=== PATIENT | male | born 1990 | race Caucasian/White ===

== ENCOUNTER 2019-03-22 08:39 | Emergency (ER) | payer SELFPAY ==
[2019-03-22] MEDS: ONDANSETRON (ODT) 4 MG TAB ODT (09:19)
[2019-03-22] MEDS: LIDOCAINE/MYLANTA 40 ML BTL PO (09:19)
[2019-03-22 09:39] LABS: ADD MAN DIFF? NO
[2019-03-22 09:43] LABS: BASOPHILS % 0.4 % (0.0-2.0); EOSINOPHILS # 0.1 10^3/ul (0.0-0.5); EOSINOPHILS % 0.7 % (0.0-7.0); HEMATOCRIT 45.6 % (42.0-52.0); LYMPHOCYTES # 2.3 10^3/ul (0.8-2.9); LYMPHOCYTES % 32.1 % (15.0-51.0); MEAN CORPUSCULAR HEMOGLOBIN 30.1 pg (29.0-33.0); MEAN CORPUSCULAR HGB CONC 32.9 g/dl (32.0-37.0); MEAN CORPUSCULAR VOLUME 91.4 fl (82.0-101.0); MEAN PLATELET VOLUME 10.8 fl (7.4-10.4); MONOCYTE # 0.5 10^3/ul (0.3-0.9); MONOCYTES % 7.5 % (0.0-11.0); NEUTROPHIL # 4.2 10^3/ul (1.6-7.5); NEUTROPHILS % 59.2 % (39.0-77.0); PLATELET COUNT 250 10^3/UL (140-415); RED BLOOD COUNT 4.99 10^6/ul (4.70-6.10); RED CELL DISTRIBUTION WIDTH 11.9 % (11.5-14.5)
[2019-03-22 09:43] LABS: WHITE BLOOD COUNT 7.1 10^3/ul (4.8-10.8)
[2019-03-22 09:46] LABS: ADD UMIC NO; UR ASCORBIC ACID NEGATIVE (NEGATIVE); UR BILIRUBIN (Dip) NEGATIVE (NEGATIVE); UR BLOOD (Dip) NEGATIVE (NEGATIVE); UR CLARITY CLEAR (CLEAR); UR COLOR YELLOW (YELLOW); UR GLUCOSE (Dip) NEGATIVE (NEGATIVE); UR KETONES (Dip) NEGATIVE (NEGATIVE); UR LEUKOCYTE ESTERASE (Dip) NEGATIVE Leu/ul (NEGATIVE); UR NITRITE (Dip) NEGATIVE (NEGATIVE); UR SPECIFIC GRAVITY (Dip) 1.023 (1.003-1.030); UR TOTAL PROTEIN (Dip) NEGATIVE (NEGATIVE); UR UROBILINOGEN (Dip) NEGATIVE (NEGATIVE)
[2019-03-22 10:04] LABS: ALANINE AMINOTRANSFERASE 97 IU/L (13-69); ALBUMIN 4.6 g/dl (3.3-4.9); ALBUMIN/GLOBULIN RATIO 1.31; ALKALINE PHOSPHATASE 92 IU/L (42-121); ANION GAP 8 (5-13); ASPARTATE AMINO TRANSFERASE 42 IU/L (15-46); BILIRUBIN,INDIRECT 0.5 mg/dl (0-1.1); BILIRUBIN,TOTAL 0.5 mg/dl (0.2-1.3); BLOOD UREA NITROGEN 8 mg/dl (7-20); CARBON DIOXIDE 27 mmol/L (21-31); CHLORIDE 105 mmol/L (97-110); CREATININE 1.07 mg/dl (0.61-1.24); Estimated GFR > 60 mL/min (>60); GLUCOSE 95 mg/dl (70-220); LIPASE 55 U/L (23-300); POTASSIUM 4.5 mmol/L (3.5-5.1); SODIUM 140 mmol/L (135-144); TOTAL PROTEIN 8.1 g/dl (6.1-8.1)
== END 2019-03-22 10:15 | disposition home or self-care (01) ==
LOC: FTE 10:15
DX: R10.13 Epigastric pain (principal); R11.2 Nausea with vomiting, unspecified
CPT/HCPCS: 36415; 80053; 81003; 83690; 85025; 99283

== ENCOUNTER 2019-03-24 21:01 | Emergency (ER) | payer SELFPAY ==
[2019-03-24] MEDS: PANTOPRAZOLE (EC) 40 MG TAB PO (21:36)
[2019-03-24] MEDS: LIDOCAINE/MYLANTA 40 ML BTL PO (21:36)
== END 2019-03-24 23:31 | disposition home or self-care (01) ==
LOC: FTE 21:01
DX: R10.13 Epigastric pain (principal)
CPT/HCPCS: 76705; 99284-25